=== PATIENT | male | born 1955 | race Caucasian/White ===

== ENCOUNTER 2017-10-31 14:09 | Emergency (ER) | payer BC ==
[2017-10-31] MEDS: Morphine 10 MG/ML Syringe IVPUSH ONE ×2 (14:10→14:25)
[2017-10-31] MEDS ORDERED: Sodium Chloride 0.9% 10 ML Syringe FLUSH PRN (14:44)
[2017-10-31] MEDS: Sodium Chloride 0.9% 1,000 ML IV SCH (15:13)
[2017-10-31 15:19] VITALS: BP 125/74
--- NOTE | 2017-10-31 16:52 | EDM.PDOC ---
ED HPI GENERAL MEDICAL PROBLEM - General Chief Complaint: General Stated Complaint: ankle fracture Time Seen by Provider: 10/31/17 14:09 Source of Information: Reports: Patient History Limitations: Reports: No Limitations - History of Present Illness INITIAL COMMENTS - FREE TEXT/NARRATIVE: This is a 62yo M who jumped off the bed of his truck and injured his left ankle. He denies any other injuries. He was unable to walk afterwards and went home. He later came to the ER and then [facility] to clinic. Due to the injuries and pain developing he was placed back in ER for pain management and reduction. Onset: Sudden Duration: Hour(s):, Getting Worse Location: Reports: Lower Extremity, Left Quality: Reports: Ache Severity: Severe Improves with: Reports: None Worsens with: Reports: Movement Associated Symptoms: Reports: No Other Symptoms - Related Data Allergies Allergy/AdvReac Type Severity Reaction Status Date / Time No Known Allergies Allergy Verified 10/31/17 15:22 Home Meds: Home Meds Aspirin [Halfprin] 81 mg PO DAILY 10/31/17 [History] Hydrochlorothiazide [Hydrochlorothiazide] 25 mg PO DAILY 10/31/17 [History] Review of Systems - Review of Systems Review Of Systems: ROS reveals no pertinent complaints other than HPI. ED EXAM, GENERAL - Physical Exam Exam: See Below Exam Limited By: No Limitations General Appearance: Alert, WD/WN, Moderate Distress, Severe Distress Eye Exam: Bilateral Eye: EOMI, PERRL Ears: Normal External Exam Nose: Normal Inspection Throat/Mouth: Normal Inspection Head: Atraumatic, Normocephalic Neck: Normal Inspection Respiratory/Chest: No Respiratory Distress, Lungs Clear, Normal Breath Sounds Cardiovascular: Normal Peripheral Pulses, Regular Rate, Rhythm Peripheral Pulses: 2+: Dorsalis Pedis (L), Dorsalis Pedis (R) GI/Abdominal: Normal Bowel Sounds Extremities: Other (deformed ankle and dislocation posterio-laterally of the left ankle; swelling of the ankle and severe tenderness) Neurological: Alert, Oriented, CN II-XII Intact ED TRAUMA EXTREMITY PROCEDURES - Joint Reduction Site: Other (left ankle) Local Anesthesia - Lidocaine (Xylocaine): 1% Plain Local Anesthetic Volume: 5cc Pre-Procedure NV Status: Normal Post-Procedure NV Status: Normal Technique: Traction/Counter Traction Number of Attempts: 2 Post-Reduction Imaging: Unacceptably Reduced Joint Reduction Complications: No Progress/Comments: Unable to reduce fully and ankle would slip back to posterio-lateral position. 2 Attempts without success. Course - Vital Signs Last Recorded V/S: Last Vital Signs Temp 37.1 C 10/31/17 15:18 Pulse 91 10/31/17 15:18 Resp 12 10/31/17 15:18 BP 125/74 10/31/17 15:18 Pulse Ox 98 10/31/17 15:18 - Orders/Labs/Meds Orders: Active Orders 24 hr Category Date Time Status Peripheral IV Insertion Adult [OM.PC] Routine Oth 10/31/17 14:44 Ordered Meds: Medications Discontinued Medications Generic Name Dose Route Start Last Admin Trade Name Freq PRN Reason Stop Dose Admin Diazepam 1 mg 10/31/17 14:46 10/31/17 14:20 Valium IVPUSH 10/31/17 14:47 1 mg ONETIME ONE Administration Diazepam 2 mg 10/31/17 15:07 10/31/17 15:11 Valium IVPUSH 10/31/17 15:08 2 mg ONETIME ONE Administration Sodium Chloride 1,000 mls @ 999 mls/hr 10/31/17 15:15 10/31/17 15:13 Normal Saline IV 999 mls/hr ASDIRECTED ALEXIA Administration Morphine Sulfate 4 mg 10/31/17 14:44 10/31/17 14:10 Morphine IVPUSH 10/31/17 14:45 4 mg ONETIME ONE Administration Morphine Sulfate 4 mg 10/31/17 15:07 10/31/17 14:25 Morphine IVPUSH 10/31/17 15:08 4 mg ONETIME ONE Administration Sodium Chloride 10 ml 10/31/17 14:44 Saline Flush FLUSH ASDIRECTED PRN Keep Vein Open Departure - Departure Time of Disposition: 16:30 Disposition: DC/Tfer to Acute Hospital 02 Condition: Undetermined Clinical Impression: Dislocation of left ankle joint Qualifiers: Encounter type: initial encounter Qualified Code(s): S93.05XA - Dislocation of left ankle joint, initial encounter Closed fracture of distal end of fibula with tibia Qualifiers: Encounter type: initial encounter Laterality: left Qualified Code(s): S82.302A - Unspecified fracture of lower end of left tibia, initial encounter for closed fracture; S82.832A - Other fracture of upper and lower end of left fibula, initial encounter for closed fracture; S82.832A - Other fracture of upper and lower end of left fibula, initial encounter for closed fracture - Discharge Information Referrals: PCP,None [Primary Care Provider] - Forms: ED Department Discharge - Problem List Review Problem List Initiated/Reviewed/Updated: Yes - My Orders Last 24 Hours: My Active Orders 10/31/17 14:44 Peripheral IV Insertion Adult [OM.PC] Routine - Assessment/Plan Last 24 Hours: My Active Orders 10/31/17 14:44 Peripheral IV Insertion Adult [OM.PC] Routine Plan: Patient sent via ACL[facility] for pain management. Discussed initial consultation with Dr. Velasquez and was recommended reduction and repeat x-ray but due to joint unable to be reduced was referred to ER and ER provider accepted patient. Patient to be transferred to [facility] ER.
== END 2017-10-31 15:40 ==
LOC: LB.ED 14:09
DX: S82.302A Unspecified fracture of lower end of left tibia, initial encounter for closed fracture (principal); S82.832A Other fracture of upper and lower end of left fibula, initial encounter for closed fracture; S93.05XA Dislocation of left ankle joint, initial encounter; W17.89XA Other fall from one level to another, initial encounter; Z79.82 Long term (current) use of aspirin; Z79.899 Other long term (current) drug therapy
CPT/HCPCS: 73610-LT; 96374; 96375; 96376; 99284-25; A0425; A0429; J2270; J3360; J7040

== ENCOUNTER 2019-04-20 06:53 | Day surgery (SDC) | payer MEDICARE, BC ==
[~2019-04-20 06:53] MED LIST: Lactated Ringers 1,000 ML IV SCH; ceFAZolin 1 GM in Sodium Chloride 0.9% 50 ML IV ONE
[2019-04-20] MEDS ORDERED: fentaNYL 100 MCG/2 ML SDV ONE ×2 (11:19→11:30)
[2019-04-20] MEDS ORDERED: fentaNYL 100 MCG/2 ML SDV IVPUSH ONE ×2 (11:21→11:33)
[2019-04-20] MEDS ORDERED: Glycopyrrolate 0.2 MG/ML 2 ML SDV ONE (11:30)
[2019-04-20] MEDS ORDERED: Propofol 200 MG/20 ML SDV ONE (11:30)
[2019-04-20] MEDS: HYDROmorphone 2 MG/ML Syringe IVPUSH ONE ×2 (11:41→11:46)
[2019-04-20] MEDS ORDERED: Ketorolac 10 MG Tab PO ONE (13:30)
--- NOTE | 2019-06-04 02:56 | OR ---
DATE OF OPERATION: 04/20/2019 SURGEON: Aram Mcduffie MD PREOPERATIVE DIAGNOSIS: Painful left lateral malleolus ankle fracture. POSTOPERATIVE DIAGNOSIS: Painful left lateral malleolus ankle fracture. PROCEDURE: Removal of hardware, left lateral malleolus ankle. ANESTHESIA: General. STEMHOLE BORER AND TOPPER: Flaco Mendes R.N. SPECIMENS: None. DRAINS: None. ESTIMATED BLOOD LOSS: Minimal. COMPLICATIONS: None apparent. DESCRIPTION OF PROCEDURE: After informed consent was obtained, the patient was brought to the operating room, where a general anesthetic was administered uneventfully. The left lower extremity was prepped and draped sterilely. A time-out was held, and antibiotics were confirmed. The limb was exsanguinated, and the tourniquet inflated. A straight lateral approach was used through the previous incision, dissecting sharply down onto the plate and screw hardware. This was exposed. This showed plate and screw construct in its entirety. The screws were removed. The plate was removed without difficulty. We removed a small amount of bone that had grown up over the plate with a rongeur. We copiously irrigated it, closed with 2-O Vicryl, and kiko. Sterile dressings were applied. The patient was brought to recovery room in stable condition, having tolerated the procedure well. DYLLAN/JESSICA /[id number]
== END 2019-04-20 15:00 | disposition home or self-care (01) ==
LOC: LB.SDS 06:53
PROVIDERS: ATTEND Orthopaedic Surgery
DX: T84.84XA Pain due to internal orthopedic prosthetic devices, implants and grafts, initial encounter (principal); S82.62XD Displaced fracture of lateral malleolus of left fibula, subsequent encounter for closed fracture with routine healing; I10 Essential (primary) hypertension; F17.200 Nicotine dependence, unspecified, uncomplicated; G62.9 Polyneuropathy, unspecified; G89.29 Other chronic pain; M54.9 Dorsalgia, unspecified; Z79.82 Long term (current) use of aspirin; Z79.899 Other long term (current) drug therapy
CPT/HCPCS: A9270-GY; J0690; J1170; J2704; J3010; J3490; J7050; J7120